=== PATIENT | male | born 1995 | race Caucasian/White ===

== ENCOUNTER 2020-04-01 09:24 | Emergency (ER) | payer OTHER ==
[~2020-04-01] VITALS: Ht 182.9 cm; Wt 90.7 kg
[2020-04-01] MEDS ORDERED: TAMS0.4C PO (12:52)
[2020-04-01] MEDS ORDERED: KETO10TA2 PO (12:52)
== END 2020-04-01 14:19 | disposition home or self-care (01) ==
LOC: ER 09:24
DX: N20.0 Calculus of kidney (principal); R10.31 Right lower quadrant pain